=== PATIENT | male | born 1995 | race Two or more races ===

== ENCOUNTER 2020-09-21 08:00 | Day surgery (SDC) | payer OTHER ==
[~2020-09-21] VITALS: Ht 167.6 cm; Wt 85.7 kg
[2020-09-21] MEDS ORDERED: AMOX-CLAV 875-1 EAC1 (11:54)
[2020-09-21] MEDS ORDERED: ULTRAM50 MG (11:55)
[2020-09-21] MEDS ORDERED: FLURBIPROFEN100 MG (11:55)
[2020-09-21] MEDS ORDERED: PERCOCET 5-3251 EACH PO (12:36)
== END 2020-09-21 18:00 | disposition home or self-care (01) ==
LOC: CIR.AMB 08:00 → SEC-K 08:34 → O/R 08:34 → ER 08:34 → EDSTATUS 14:00 → CIR.AMB 18:00 → SEC-K 09-22 15:26 → O/R 09-22 15:26
PROVIDERS: ATTEND Surgery
DX: K60.3 Anal fistula (principal); Z20.822 Contact with and (suspected) exposure to COVID-19